=== PATIENT | male | born 1960 | race Caucasian/White ===

== ENCOUNTER 2017-10-21 05:03 | Inpatient (IN) | payer OTHER ==
[~2017-10-21] VITALS: Ht 175.3 cm; Wt 52.8 kg
--- OUTSIDE RECORDS SUMMARY | 2017-10-21 05:13 | XMS REPORT | Continuity of Care Document ---
Author Author [facility] Organization [facility] Address Unknown Phone Unavailable Allergies There is no data. Medications There is no data. Problems There is no data. Procedures There is no data. Results There is no data. Encounters ACCT No. Visit Date/Time Discharge Status Pt. Type Provider Facility Loc./Unit Complaint [id number] 02/21/2015 13:13:00 02/21/2015 23:59:59 CLS Outpatient AMY LEBLANC DO [facility] OCC
--- NOTE | 2017-10-21 05:29 | ED Fall/Injury ---
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 PT STATES HE "BOUNCED AROUND ALL OVER" BUT DOES NOT THINK HE HIT HIS HEAD NO LOSS OF CONSCIOUSNESS DENIES NECK OR BACK PAIN NO CHEST PAIN OR SHORTNESS OF BREATH NO PARESTHESIAS OR MOTOR DEFICITS NO OTHER INJURIES NO PRIOR INJURY OR PROBLEMS WITH THIS HIP NO PCP--HAS NOT SEEN IN OVER 15 YEARS Allergies and Home Medications Allergies Coded Allergies: No Known Drug Allergies (Unverified , 10/21/17) Constitutional: no symptoms reported Eyes: No Symptoms Reported Ears, Nose, Mouth, Throat: no symptoms reported Respiratory: no symptoms reported Cardiovascular: no symptoms reported Gastrointestinal: no symptoms reported Genitourinary: no symptoms reported Musculoskeletal: see HPI (LEFT HIP PAIN), back pain (PT STATES "MY BACK ALWAYS HURTS" BUT IS NOT PAINFUL NOW, AND DENIES INJURING HIS BACK WITH THIS FALL), No neck pain Skin: no symptoms reported Psychiatric/Neurological: No Symptoms Reported Past Fbpbgyt-Kevebt-Jhjuas Hx Patient Social History Alcohol Use: Regular Use ("3 OR 4 BEERS" EVERY DAY) Recreational Drug Use: No Smoking Status: Current Everyday Smoker (2 PPD) Type Used: Cigarettes (2 PPD) Recent Foreign Travel: No Contact w/Someone Who Travel: No Immunizations Up To Date Tetanus Booster (TDap): More than 5yrs Surgeries History of Surgeries: Yes (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) Surgeries: Orthopedic Respiratory History of Respiratory Disorde: No Cardiovascular History of Cardiac Disorders: No Neurological History of Neurological Disord: No Genitourinary History of Genitourinary Disor: No Gastrointestinal History of Gastrointestinal Di: No Musculoskeletal History of Musculoskeletal Dis: Yes Musculoskeletal Disorders: Chronic Back Pain Endocrine History of Endocrine Disorders: No HEENT History of HEENT Disorders: No Cancer History of Cancer: No Psychosocial History of Psychiatric Problem: No Integumentary History of Skin or Integumenta: No Blood Transfusions History of Blood Disorders: No Physical Exam Vital Signs Vital Sign - Last 12Hours 10/21/17 05:20 Temp 96.9 Pulse 80 Resp 20 B/P (MAP) 195/87 (123) Pulse Ox 98 O2 Delivery Room Air Capillary Refill : General Appearance: WD/WN, no apparent distress, thin HEENT: PERRL/EOMI, other (NO EXTERNAL EVIDENCE OF TRAUMA TO HEAD) Neck: non-tender, full range of motion, supple, normal inspection Cardiovascular: normal peripheral pulses, regular rate, rhythm, no edema, no JVD, no murmur Respiratory: chest non-tender, normal breath sounds, no respiratory distress, no accessory muscle use Peripheral Pulses: 2+ Dorsalis Pedis (R), 2+ Left Dors-Pedis (L), 2+ Radial Pulses (R), 2+ Radial Pulses (L) Gastrointestinal: normal bowel sounds, non tender, soft, no organomegaly, no pulsatile mass Back: normal inspection, no CVA tenderness, no vertebral tenderness Extremities: no pedal edema, no calf tenderness, normal capillary refill, pelvis stable, other (TENDERNESS TO LEFT HIP--NO EXTERNAL EVIDENCE OF TRAUMA. VERY LIMITED ROM AND UNABLE TO BEAR WEIGHT ON LEFT LEG DUE TO HIP PAIN. MINOR ABRASION TO LEFT ELBOW, BUT NON-TENDER AND FULL ROM. 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 ) [place] Coma Score Best Eye Response: (4) Open Spontaneously Best Verbal Response: (5) Oriented Best Motor Response: (6) Obeys Commands Vinicio Total: 15 Progress/Results/Core Measures Results/Orders My Orders Orders - GISELA,MAURICIO K DO Pelvis With Left Hip 2-3 Views (10/21/17 05:21) Alcohol (10/21/17 05:43) Cbc With Automated Diff (10/21/17 05:43) Comprehensive Metabolic Panel (10/21/17 05:43) Protime With Inr (10/21/17 05:43) Partial Thromboplastin Time (10/21/17 05:43) Ua Culture If Indicated (10/21/17 05:43) Type And Screen (10/21/17 05:43) Chest 1 View, Ap/Pa Only (10/21/17 05:43) Saline Lock/Iv-Start (10/21/17 05:43) Saline Lock/Iv-Start (10/21/17 05:43) D5 1/2 Ns 1000 Ml Iv Solution (Dextrose (10/21/17 05:45) Fentanyl Injection (Sublimaze Injection (10/21/17 05:43) Dipht,Pertuss(Acell),Tet Adult (Boostrix (10/21/17 05:43) Vital Signs/I&O Vital Sign - Last 12Hours 10/21/17 05:20 Temp 96.9 Pulse 80 Resp 20 B/P (MAP) 195/87 (123) Pulse Ox 98 O2 Delivery Room Air Progress Note : Progress Note LAST FOOD INTAKE 0200 LAST ETOH-- AFTERNOON OF 10/20/17 Diagnostic Imaging Comments XRAYS PELVIS AND LEFT HIP--INTERTROCHANTERIC FX CXR--NO ACUTE PROCESS PENDING RADIOLOGIST REVIEWS Reviewed: Reviewed by Me Departure Communication (Admissions) Progress Notes 0545--SPOKE WITH DR. 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 ACCEPTS PT FOR ADMIT Impression Impression: Primary Impression: Closed intertrochanteric fracture of left hip Additional Impressions: S/P FALL FROM LADDER Daily consumption of alcohol Very heavy cigarette smoker (40 or more per day) Rdbndhdhuh-biawvblxt-uqemybl (DPT) vaccination administered at current visit Disposition: ADMITTED INPATIENT Condition: Improved Admissions Decision to Admit Reason: Admit from ER (Trauma) Decision to Admit/Date: Oct 21, 2017 Time/Decision to Admit Time: 05:45 Departure-Patient Inst. Referrals: NO,LOCAL PHYSICIAN (PCP/Family) Primary Care Physician MAURICIO HIGGINS DO Oct 21, 2017 05:28
[2017-10-21] MEDS ORDERED: TETANUS,DIPTH,PERTUSS P/F (BOOSTRIX) 0.5 ML VIAL IM STA (05:43)
[2017-10-21] MEDS ORDERED: fentaNYL INJECTION 100 MCG/2 ML AMP IVP STA (05:43)
[2017-10-21] MEDS ORDERED: D5 1/2 NS 1000 ML IV SOLUTION 1,000 ML IV ONE (05:45)
[2017-10-21 05:56] LABS: BASOPHILS % (AUTO) 0 % (0-10); EOSINOPHILS # (AUTO) 0.2 10^3/uL (0.0-0.3); EOSINOPHILS % (AUTO) 2 % (0-10); HEMATOCRIT 35 % (40-54); HEMOGLOBIN 11.7 G/DL (13.3-17.7); LYMPHOCYTES # (AUTO) 1.3 X 10^3 (1.0-4.0); LYMPHOCYTES % (AUTO) 14 % (12-44); MEAN CORPUSCULAR HEMOGLOBIN 30 PG (25-34); MEAN CORPUSCULAR HGB CONC 34 G/DL (32-36); MEAN CORPUSCULAR VOLUME 89 FL (80-99); MEAN PLATELET VOLUME 9.8 FL (7.4-10.4); MONOCYTES # (AUTO) 1.2 X 10^3 (0.0-1.0); MONOCYTES % (AUTO) 12 % (0-12); NEUTROPHILS % (AUTO) 72 % (42-75); PLATELET COUNT 368 10^3/uL (130-400); RED BLOOD COUNT 3.89 10^6/uL (4.35-5.85); RED CELL DISTRIBUTION WIDTH 13.6 % (10.0-14.5); WHITE BLOOD COUNT 9.8 10^3/uL (4.3-11.0)
--- NOTE | 2017-10-21 05:57 | Diagnostic Imaging Report ---
INDICATION: Left hip pain after fall. COMPARISON: None available. TECHNIQUE: AP pelvis with AP and frog-leg lateral views of the left hip. FINDINGS: There is an acute intertrochanteric fracture of the proximal left femur. There is less than 5 mm of diastasis of the fracture gap. The lesser trochanter is incompletely from the femoral shaft. No anterior posterior displacement of the femoral shaft and no significant foreshortening. Proximal right femur is intact. No diastases of the symphysis pubis or SI joints. IMPRESSION: 1. Acute, mildly displaced intertrochanteric fracture of the proximal left femur. Dictated by: Dictated on workstation # [id number]
[2017-10-21 06:04] LABS: INR 1.1 (0.8-1.4); PROTHROMBIN TIME PATIENT 14.7 SEC (12.2-14.7)
[2017-10-21 06:14] LABS: ALANINE AMINOTRANSFERASE 14 U/L (0-55); ALBUMIN 4.5 GM/DL (3.2-4.5); ALKALINE PHOSPHATASE 53 U/L (40-136); BILIRUBIN,TOTAL 0.2 MG/DL (0.1-1.0); BUN/CREATININE RATIO 17; CALCIUM 9.6 MG/DL (8.5-10.1); CARBON DIOXIDE 25 MMOL/L (21-32); CHLORIDE 104 MMOL/L (98-107); CREATININE SERUM 0.94 MG/DL (0.60-1.30); GFR ESTIMATED > 60; GLUCOSE 87 MG/DL (70-105); POTASSIUM 4.1 MMOL/L (3.6-5.0); SODIUM 141 MMOL/L (135-145); TOTAL PROTEIN 7.5 GM/DL (6.4-8.2)
--- OUTSIDE RECORDS SUMMARY | 2017-10-21 06:15 | XMS REPORT | Continuity of Care Document ---
Author Author [facility] Organization [facility] Address Unknown Phone Unavailable Allergies There is no data. Medications There is no data. Problems There is no data. Procedures There is no data. Results Test Result Range Complete blood count (CBC) with automated white blood cell (WBC) differential - 10/21/17 05:45 Blood leukocytes automated count (number/volume) 9.8 10*3/uL 4.3-11.0 Blood erythrocytes automated count (number/volume) 3.89 10*6/uL 4.35-5.85 Venous blood hemoglobin measurement (mass/volume) 11.7 g/dL 13.3-17.7 Blood hematocrit (volume fraction) 35 % 40-54 Automated erythrocyte mean corpuscular volume 89 [foz_us] 80-99 Automated erythrocyte mean corpuscular hemoglobin (mass per erythrocyte) 30 pg 25-34 Automated erythrocyte mean corpuscular hemoglobin concentration measurement ( mass/volume) 34 g/dL 32-36 Automated erythrocyte distribution width ratio 13.6 % 10.0-14.5 Automated blood platelet count (count/volume) 368 10*3/uL 130-400 Automated blood platelet mean volume measurement 9.8 [foz_us] 7.4-10.4 Automated blood neutrophils/100 leukocytes 72 % 42-75 Automated blood lymphocytes/100 leukocytes 14 % 12-44 Blood monocytes/100 leukocytes 12 % 0-12 Automated blood eosinophils/100 leukocytes 2 % 0-10 Automated blood basophils/100 leukocytes 0 % 0-10 Blood neutrophils automated count (number/volume) 7.0 10*3 1.8-7.8 Blood lymphocytes automated count (number/volume) 1.3 10*3 1.0-4.0 Blood monocytes automated count (number/volume) 1.2 10*3 0.0-1.0 Automated eosinophil count 0.2 10*3/uL 0.0-0.3 Automated blood basophil count (count/volume) 0.0 10*3/uL 0.0-0.1 PT panel in platelet poor plasma by coagulation assay - 10/21/17 05:45 Prothrombin time (PT) in platelet poor plasma by coagulation assay 14.7 s 12.2-14.7 INR in platelet poor plasma or blood by coagulation assay 1.1 0.8-1.4 Activated partial thromboplastin time (aPTT) in platelet poor plasma bycoagulation assay - 10/21/17 05:45 Activated partial thromboplastin time (aPTT) in platelet poor plasma bycoagulation assay 30 s 24-35 Comprehensive metabolic panel - 10/21/17 05:45 Serum or plasma sodium measurement (moles/volume) 141 mmol/L 135-145 Serum or plasma potassium measurement (moles/volume) 4.1 mmol/L 3.6-5.0 Serum or plasma chloride measurement (moles/volume) 104 mmol/L 98-107 Carbon dioxide 25 mmol/L 21-32 Serum or plasma anion gap determination (moles/volume) 12 mmol/L 5-14 Serum or plasma urea nitrogen measurement (mass/volume) 16 mg/dL 7-18 Serum or plasma creatinine measurement (mass/volume) 0.94 mg/dL 0.60-1.30 Serum or plasma urea nitrogen/creatinine mass ratio 17 NRG Serum or plasma creatinine measurement with calculation of estimated glomerular filtration rate > NRG Serum or plasma glucose measurement (mass/volume) 87 mg/dL 70-105 Serum or plasma calcium measurement (mass/volume) 9.6 mg/dL 8.5-10.1 Serum or plasma total bilirubin measurement (mass/volume) 0.2 mg/dL 0.1-1.0 Serum or plasma alkaline phosphatase measurement (enzymatic activity/volume) 53 U/L 40-136 Serum or plasma aspartate aminotransferase measurement (enzymatic activity/ volume) 23 U/L 5-34 Serum or plasma alanine aminotransferase measurement (enzymatic activity/volume ) 14 U/L 0-55 Serum or plasma protein measurement (mass/volume) 7.5 g/dL 6.4-8.2 Serum or plasma albumin measurement (mass/volume) 4.5 g/dL 3.2-4.5 Encounters ACCT No. Visit Date/Time Discharge Status Pt. Type Provider Facility Loc./Unit Complaint [id number] 02/21/2015 13:13:00 02/21/2015 23:59:59 [facility] Outpatient COLAMY HATCH DO [facility] [id number] 10/21/2017 06:01:00 Document Registration
--- NOTE | 2017-10-21 06:33 | Diagnostic Imaging Report ---
INDICATION: Trauma. COMPARISON: None available. FINDINGS: Hyperaerated lung volume. Architectural distortion in the lung apices may relate to emphysema. No focal airspace consolidation. No pleural effusion or pneumothorax. Heart is normal in size. Normal pulmonary vasculature. There are old healed fractures of the posterior right 7, 8 and 9th ribs. Old nonunited fracture of the mid to distal left clavicle. IMPRESSION: 1. No acute cardiopulmonary process by portable radiography. 2. Hyperaerated lung volumes suggest COPD with possible underlying emphysema. Dictated by: Dictated on workstation # [id number]
[2017-10-21 06:37] LABS: BILIRUBIN,URINE NEGATIVE (NEGATIVE); COLOR,URINE YELLOW; GLUCOSE, URINE (UA) NEGATIVE (NEGATIVE); KETONES,URINE NEGATIVE (NEGATIVE); LEUKOCYTE ESTERASE ,URINE 1+ (NEGATIVE); NITRITE,URINE NEGATIVE (NEGATIVE); PH,URINE 6 (5-9); PROTEIN,URINE 1+ (NEGATIVE); UROBILINOGEN,URINE NORMAL (NORMAL)
[2017-10-21 06:44] LABS: BACTERIA,URINE NEGATIVE /HPF; CLARITY,URINE SLIGHTLY CLOUDY; RBC,URINE RARE /HPF; SQUAMOUS EPITHELIAL CELL,UR RARE /HPF; WBC,URINE RARE /HPF
[2017-10-21 06:50] VITALS: BP 214/98
[2017-10-21 06:55] VITALS: BP 193/90
[2017-10-21 07:41] VITALS: BP 185/79
[2017-10-21] MEDS ORDERED: D5 1/2 NS 1000 ML IV SOLUTION 1,000 ML IV SCH (09:00)
[2017-10-21] MEDS: fentaNYL INJECTION 100 MCG/2 ML AMP IV PRN ×3 (09:21→20:11)
[2017-10-21] MEDS ORDERED: NAPR220T66 PO (09:50)
--- NOTE | 2017-10-21 11:36 | Consultation-Hospitalist ---
HPI History of Present Illness: HPI/Chief Complaint Pt is a 57yoCM with no known medicla history who presented to the ER after a fall from a ladder falling roughly 4ft. He denies any history of falls or dizziness or syncope with this fall. He presented to the ER due to pain and inability to walk and was found to have a left intertrochanteric hip fracture. Ortho has admitted for operative repair and I am consulted for assistance with hypertension. He denies a history of high blood pressure, chest pain, SOB, ESPINOZA. He does not follow with any regular doctors though. Source: patient Date Seen 10/21/17 Attending Physician Naveen Hunter DO PCP No,Local Physician Referring Physician Dr Hunter Date of Admission Oct 21, 2017 at 05:45 Home Medications & Allergies Home Medications Reviewed patient Home Medication Reconciliation Form Allergies Allergies Coded Allergies No Known Drug Allergies (Unverified10/21/17) Past Itmebpp-Irrknz-Bvyzml Hx Patient Social History Employed/Student: employed Alcohol Use: Regular Use (5-6/day) Alcohol Beverage of Choice: Beer Recreational Drug Use: No Smoking Status: Current Everyday Smoker Cigaretts per day: 40 Type Used: Cigarettes Physical Abuse Screen: No Sexual Abuse: No Recent Foreign Travel: No Contact w/other who traveled: No Recent Hopitalizations: No Recent Infectious Disease Expo: No Immunizations Up To Date Tetanus Booster (TDap): More than 5yrs Seasonal Allergies Seasonal Allergies: No Surgeries Yes (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) Orthopedic Respiratory No (NOT DIAGNOSED) Currently Using CPAP: No Currently Using BIPAP: No Cardiovascular No Neurological No Genitourinary No Gastrointestinal No Musculoskeletal Yes Chronic Back Pain Endocrine History of Endocrine Disorders: No HEENT History of HEENT Disorders: No Cancer No Psychosocial History of Psychiatric Problem: No Integumentary History of Skin or Integumenta: No Blood Transfusions History of Blood Disorders: No Family Medical History Significant Family History: No Pertinent Family Hx, Heart Disease Review of Systems Constitutional: No chills, No fever EENTM: No blurred vision, No double vision, No nose congestion, No throat pain Respiratory: No cough, No dyspnea on exertion, No short of breath Cardiovascular: No chest pain, No edema, No palpitations Gastrointestinal: No abdominal pain, No constipation, No diarrhea, No nausea, No vomiting Genitourinary: No dysuria, No frequency Musculoskeletal: joint pain, No muscle pain Skin: No lesions, No rash Psychiatric/Neurological: Denies Headache, Denies Numbness, Denies Tingling Physical Exam Physical Exam Vital Signs Vital Sign - Last 12Hours 10/21/17 05:20 Temp 96.9 Pulse 80 Resp 20 B/P (MAP) 195/87 (123) Pulse Ox 98 O2 Delivery Room Air Capillary Refill : Less Than 3 Seconds General Appearance: No Apparent Distress, WD/WN HEENT: PERRL/EOMI, Moist Mucous Membranes Neck: Non Tender, Supple Respiratory: Lungs Clear, No Respiratory Distress Cardiovascular: Regular Rate, Rhythm, No Murmur Gastrointestinal: Normal Bowel Sounds, Non Tender, Soft Extremity: Normal Capillary Refill, No Calf Tenderness Neurologic/Psychiatric: Alert, Oriented x3 Skin: Normal Color, Warm/Dry Results Results/Procedures Lab Laboratory Tests 10/21/17 05:45 Radiology PELVIS WITH LEFT HIP 2-3 VIEWS INDICATION: Left hip pain after fall. COMPARISON: None available. TECHNIQUE: AP pelvis with AP and frog-leg lateral views of the left hip. FINDINGS: There is an acute intertrochanteric fracture of the proximal left femur. There is less than 5 mm of diastasis of the fracture gap. The lesser trochanter is incompletely from the femoral shaft. No anterior posterior displacement of the femoral shaft and no significant foreshortening. Proximal right femur is intact. No diastases of the symphysis pubis or SI joints. IMPRESSION: 1. Acute, mildly displaced intertrochanteric fracture of the proximal left femur. Assessment/Plan Admission Diagnosis Left intertrochanteric hip fracture Diagnosis/Problems Diagnosis/Problems (1) Closed intertrochanteric fracture of left hip Status: Acute Assessment & Plan: S/p fall at work Ortho primary, plan for OR today Qualifiers: Qualified Codes: S72.142A - Displaced intertrochanteric fracture of left femur, initial encounter for closed fracture (2) Essential (primary) hypertension Assessment & Plan: No known diagnosis but does not follow with any doctors Will start on IV vasotec now Will likely need antihypertensives at discharge (3) Daily consumption of alcohol Status: Acute Assessment & Plan: [facility] Assess Reports having gone 2 days without drinking before and has had no symptoms of withdrawal (4) Very heavy cigarette smoker (40 or more per day) Status: Acute Assessment & Plan: Recommended smoking cessation Patient reports not interested in quitting Clinical Quality Measures DVT/VTE Risk/Contraindication: Risk Factor Score Per Nursin RFS Level Per Nursing on Admit: 4+=Very High Smoking Cessation Counseling: Counseling-Asymptomatic: 3-10 minutes SANGEETA SANCHEZ MD Oct 21, 2017 11:36
[2017-10-21] MEDS ORDERED: 1/2 NS IV SOLUTION 1,000 ML IV PRN (11:38)
[2017-10-21] MEDS ORDERED: ONDANSETRON 4 MG (ZOFRAN) ORAL DISSOLVE TAB SL PRN (11:45)
[2017-10-21] MEDS ORDERED: INFLUENZA TRIvalent 2017-2018 0.5 ML/45 MCG SYR IM ONE (11:45)
[2017-10-21] MEDS ORDERED: LORazepam INJ 2 MG/ML (ATIVAN) VIAL IM/IV PRN (11:45)
[2017-10-21] MEDS ORDERED: ENALAPRILAT 2.5 MG/2 ML (VASOTEC) VIAL IV PRN (11:45)
[2017-10-21] MEDS ORDERED: D5 1/2 NS 1000 ML IV SOLUTION 1,000 ML IV PRN (11:45)
[2017-10-21] MEDS ORDERED: LORazepam 1 MG (ATIVAN) TAB PO PRN (11:45)
[2017-10-21] MEDS ORDERED: ONDANSETRON 4 MG/2 ML (SDV) Z0FRAN IV PRN ×2 (11:45→16:15)
[2017-10-21] MEDS ORDERED: ANTACID SUSP 30 ML UDC (MYLANTA) PO PRN (11:45)
[2017-10-21] MEDS ORDERED: LORazepam INJ 2 MG/ML (ATIVAN) VIAL IV PRN (11:45)
[2017-10-21] MEDS ORDERED: SENNA W/DOCUSATE (SENOKOT S) TABLET PO PRN (11:45)
[2017-10-21 12:00] VITALS: BP 158/79
[2017-10-21] MEDS ORDERED: LACTATED RINGERS 1,000 ML IV PRN (12:21)
[2017-10-21] MEDS ORDERED: proPOfol 200 MG/20 ML (DIPRIVAN) VIAL IV ONE (12:46)
[2017-10-21] MEDS ORDERED: ONDANSETRON 4 MG/2 ML (SDV) Z0FRAN ONE (12:46)
[2017-10-21] MEDS ORDERED: ROCURONIUM 50 MG/5 ML (ZEMURON) VIAL IV ONE (12:46)
[2017-10-21] MEDS ORDERED: LIDOCAINE PF 2% 5 ML (XYLOCAINE) VIAL ONE (12:46)
[2017-10-21] MEDS ORDERED: fentaNYL INJECTION 100 MCG/2 ML AMP ONE (12:47)
[2017-10-21] MEDS ORDERED: MIDAZOLAM 2 MG/2 ML (VERSED) VIAL ONE (12:47)
[2017-10-21] MEDS ORDERED: SEVOFLURANE (ULTANE) 15 ML INHAL SOLN ONE ×5 (12:50→14:28)
[2017-10-21] MEDS ORDERED: ceFAZolin 1,000 MG (ANCEF) VIAL ONE (13:37)
--- NOTE | 2017-10-21 13:39 | History & Physicial ---
History of Present Illness History of Present Illness Reason for visit/HPI Mr. Negro is a 57 y/o male that presents with CC of severe Left hip pain and an inability to ambulate/bear weight on his LLE secondary to sustaining a fall off of a 4 foot ladder early this morning while at work. He subsequently presented to the [facility] ED for evaluation/treatment. Upon presentation plain XRs of his Left femur demonstrated a minimally displaced intertrochanteric fracture of the Left proximal femur. Orthopedics was consulted for definitive management of his injury. Pt. denies head trauma/LOC, denies neck/back pain, denies other injuries to his extremities. He also denies f/c/ns, cp/sob or other constitutional symptoms. He has no other musculoskeletal complaints today. Date of Admission Oct 21, 2017 at 05:45 Date Seen by Provider: Oct 21, 2017 Time Seen by Provider: 13:15 I consulted on this patient on 10/21/17 13:33 Attending Physician Bhavik Villalba DO Admitting Physician No,Local Physician Consult Hospitalist Allergies and Home Medications Allergies Coded Allergies: No Known Drug Allergies (Unverified , 10/21/17) Home Medications Naproxen Sodium 220 Mg Tablet, 220 MG PO BID PRN for PAIN-MILD, (Reported) Past Awmkkit-Apypcz-Sqopcq Hx Patient Social History Employed/Student: employed Alcohol Use: Regular Use Alcohol Beverage of Choice: Beer Recreational Drug Use: No Smoking Status: Current Everyday Smoker Type Used: Cigarettes Physical Abuse Screen: No Sexual Abuse: No Recent Foreign Travel: No Contact w/other who traveled: No Recent Hopitalizations: No Recent Infectious Disease Expo: No Immunizations Up To Date Tetanus Booster (TDap): More than 5yrs Seasonal Allergies Seasonal Allergies: No Surgeries Yes (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) Orthopedic Respiratory No (NOT DIAGNOSED) Currently Using CPAP: No Currently Using BIPAP: No Cardiovascular No Neurological No Genitourinary No Gastrointestinal No Musculoskeletal Yes Chronic Back Pain Endocrine History of Endocrine Disorders: No HEENT History of HEENT Disorders: No Cancer No Psychosocial History of Psychiatric Problem: No Integumentary History of Skin or Integumenta: No Blood Transfusions History of Blood Disorders: No Constitutional: no symptoms reported EENTM: no symptoms reported Respiratory: no symptoms reported Gastrointestinal: no symptoms reported Genitourinary: no symptoms reported Musculoskeletal: other (Left hip pain) Skin: no symptoms reported Psychiatric/Neurological: No Symptoms Reported Physical Exam Vital Signs Vital Sign - Last 12Hours 10/21/17 05:20 Temp 96.9 Pulse 80 Resp 20 B/P (MAP) 195/87 (123) Pulse Ox 98 O2 Delivery Room Air Capillary Refill : Less Than 3 Seconds General Appearance: No Apparent Distress, WD/WN Eyes: Bilateral Eye Normal Inspection, Bilateral Eye PERRL, Bilateral Eye EOMI HEENT: PERRL/EOMI Neck: Full Range of Motion, Normal Inspection, Non Tender, Supple Respiratory: No Accessory Muscle Use, No Respiratory Distress Cardiovascular: Regular Rate, Rhythm, Normal Peripheral Pulses Gastrointestinal: Non Tender, Soft Back: Normal Inspection Extremity: Other (LLE: pain with PROM/log roll, motor/sensation grossly intact , all compartments soft/compressible, foot well perfused, skin intact, no open wounds.) Neurologic/Psychiatric: Alert, Oriented x3, No Motor/Sensory Deficits, Normal Mood/Affect, carbon paper interleafer II-XII Norm as Tested Skin: Warm/Dry Assessment/Plan Assessment and Plan Problems: (1) Closed intertrochanteric fracture of left hip Status: Acute Qualifiers: Qualified Codes: S72.142A - Displaced intertrochanteric fracture of left femur, initial encounter for closed fracture Assessment & Plan: S/p fall at work off of a 4 foot ladder onto his left hip Sustained a minimally displaced intertrochanteric fracture Left proximal femur Continue NPO Unstable injury that will require operative fixation. Will plan for OR today. Will get hospitalist consult for medical management I have discussed the injury and treatment options with the patient in detail including the risks, benefits, potential complications and expected outcomes. All of his questions have been answered to his satisfaction. He has given informed written consent to proceed as planned. (2) Essential (primary) hypertension Assessment & Plan: No known diagnosis but does not follow with any doctors Will start on IV vasotec now Will likely need antihypertensives at discharge (3) Daily consumption of alcohol Status: Acute Assessment & Plan: [facility] Assess Reports having gone 2 days without drinking before and has had no symptoms of withrdrawal (4) Very heavy cigarette smoker (40 or more per day) Status: Acute Assessment & Plan: Recommended smoking cessation Patient reports not interested in quitting Admission Diagnosis Intertrochanteric fracture Left proximal femur. Clinical Quality Measures DVT/VTE Risk/Contraindication: Risk Factor Score Per Nursin RFS Level Per Nursing on Admit: 4+=Very High Smoking Cessation Counseling: Counseling-Asymptomatic: 3-10 minutes BHAVIK VILLALBA DO Oct 21, 2017 13:39
[2017-10-21] MEDS ORDERED: NEOSTIGMINE (BLOXIVERZ ) 1 MG/1ML 10 ML VIAL ONE (14:38)
[2017-10-21] MEDS ORDERED: GLYCOPYRROLATE 0.2 MG/ML (ROBINUL) 2 ML VIAL ONE (14:38)
[2017-10-21] MEDS ORDERED: morphine INJ 10 MG/ML 1ML (SYR OR VIAL) ONE (14:41)
[2017-10-21] MEDS ORDERED: HYDROmorphone (DILAUDID) 2 MG/ML VIAL ONE (14:41)
--- NOTE | 2017-10-21 14:56 | Progress Note-Post Operative ---
Post-Operative Progess Note Surgeon (s)/[facility] Continuous Process (s) Surgeon BHAVIK VILLALBA DO [facility] Continuous [facility] Baldomero Kirkpatrick PA-C Pre-Operative Diagnosis Minimally diplaced intertrochanteric fracture Left proximal femur Post-Operative Diagnosis same Post-Op Procedure Note Date of Procedure: Oct 21, 2017 Name of Procedure Performed: Closed reduction/placement of cephalomedullary nail Left femur Description & Findings Description and Findings: Minimally displaced 2-part intertrochanteric fracture Left proximal femur. Anesthesia Type GETA Estimated Blood Loss < 50 mL Packing none. Specimen(s) collected/removed None BHAVIK VILLALBA DO Oct 21, 2017 14:56
--- NOTE | 2017-10-21 15:22 | Anesthesia-Peripheral Nerve Bl ---
Procedure Start/Stop Time Date of Procedure: Oct 21, 2017 Start Time: 14:55 Referring Physician: Dale Stop Time: 15:10 Peripheral Nerve Block Peripheral Nerve Blockade Risk/Benefits/Alternatives discussed, including IV injection leading to complications or seizures, nerve irritation or damage, pneumothorax, total spinal anesthesia, injection, and/or bleeding. Side Confirmed: RIGHT Indication: Analgesia Specifically requested for management of pain by: Dx/Pain Location Right IM Nail Patient Condition Vital Signs Vital Signs Date Time Temp Pulse Resp B/P (MAP) Pulse Ox O2 Delivery O2 Flow Rate FiO2 10/21/17 12:00 97.2 75 20 158/79 (105) 98 Room Air Patient Condition: General PNB performed under: General Anesthesia Indication Post operative Pain control Procedure Prepartation: Iodophor/Isopropyl Position: Supine Rices Landing: Short-bevel Needle (s) Size: 22g 2" Technique: Injection through needle Injectate: ropivacaine Concentration %: 0.5 Volume (ml): 30 Epinephrine used: No Narrative Injection was made incrementally with constant monitoring. Aspiration every (mls): 5 Blood Aspirated: No Events Events: None:easy well tolerated Sucess: Complete (Completed under General Anesthesia with Direct visualizaiton with Ultrasound. Good hydrodisection visualized. ) Patient Conditon Post Peripheral Nerve Block Post Peripheral Nerve Block Vital Signs: Blood Pressure: Systolic Diastolic Heart Rate Blood Pressure Systolic: 158 Blood Pressure Diastolic: 79 Pulse Rate (adult): 75 MEGHAN THORPE CRNA Oct 21, 2017 15:22
[2017-10-21] MEDS ORDERED: ONDANSETRON 4 MG/2 ML (SDV) Z0FRAN IVP PRN (15:30)
[2017-10-21] MEDS ORDERED: morphine INJ 10 MG/ML 1ML (SYR OR VIAL) IVP PRN (15:30)
--- NOTE | 2017-10-21 16:03 | Diagnostic Imaging Report ---
EXAMINATION: Fluoroscopy. INDICATION: Left hip pain. 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 94.7 seconds of fluoroscopy time was visualized. AP and lateral spot films of the left hip were received from the OR. There is an intramedullary sagar and an orthopedic fixation screw securing the intertrochanteric fracture of the left femur seen on the exam performed earlier today. The orthopedic hardware appears to be in good position and the main fracture fragments are near anatomic in alignment. IMPRESSION: Stable postoperative left hip. Dictated by: Dictated on workstation # [id number]
[2017-10-21 16:13] VITALS: BP 189/74
[2017-10-21] MEDS: NS IV 1000 ML 1,000 ML IV SCH (16:48)
[2017-10-21] MEDS: oxyCODONE/APAP 5/325MG (PERCOCET 5) TABLET PO PRN (16:49)
[2017-10-21 20:00] VITALS: BP 106/63
[2017-10-21] MEDS: ceFAZolin INJECTION 1 MG in NS (IVPB) 50 ML IV SCH (20:10)
[2017-10-22] VITALS: BP 109/56
[2017-10-22] MEDS: NS IV 1000 ML 1,000 ML IV SCH ×4 (02:30→23:03)
--- NOTE | 2017-10-22 03:04 | OPERATIVE REPORT ---
DATE OF SERVICE: 10/21/2017 PREOPERATIVE DIAGNOSIS: Minimally displaced intratrochanteric fracture left proximal femur. POSTOPERATIVE DIAGNOSIS: Minimally displaced intratrochanteric fracture left proximal femur. PROCEDURE: Closed reduction followed by placement of a cephalomedullary nail, left femur. ATTENDING SURGEON: Dr. Bhavik Villalba. PRESIDENTIAL SUPPORT SPECIALIST: Baldomero Kirkpatrick PA-C; Mr. Kirkpatrick's assistance was needed in order to hold the necessary and critical retractors and to increase the efficiency and efficacy of the case, the case would not have been possible without the assistance of Mr. Kirkpatrick. ANESTHESIA: General endotracheal. ESTIMATED BLOOD LOSS: Less than 50 mL. COMPLICATIONS: None. SPECIMENS: None. DRAINS: None. BRIEF HISTORY AND INDICATIONS: The patient is a 57-year-old male that sustained a mechanical fall off of an approximately 4 feet ladder early this morning while at work landing onto his left hip. The patient subsequently had severe left hip pain and inability to bear weight or ambulate on his left lower extremity. As such, he was transferred to the [facility] Emergency Department for evaluation and treatment. Upon presentation, plain radiographs of the patient's left femur demonstrated a minimally displaced intertrochanteric fracture of the left proximal femur. The orthopedic surgery was consulted for definitive management of his injury. I discussed the nature of the injury with the patient in detail as well as the need for operative fixation secondary to it being an unstable injury of the left proximal femur. We did discuss the treatment options in detail, which included the risks, benefits, potential complications and expected outcomes of both nonoperative and operative management. Risks that were discussed included bleeding, infection, damage to surrounding neurovascular structures, malunion, nonunion, mechanical failure of the implant and potential need for secondary surgical procedures. After all of his questions were answered to his satisfaction, the patient gave informed written consent to proceed. Preoperatively, the patient's left lower extremity was otherwise stable, all of his compartments were soft and compressible, motor and sensory function was grossly intact, his skin was intact. There were no open wounds and his left foot was well perfused. PROCEDURE NOTE: After correctly identifying the patient as Mr. Merlin Negro in the preoperative holding area and after his left hip was appropriately marked, he was transferred to the operating room. Once in the operating room, he had successful induction of general endotracheal anesthesia. The knee was transferred to a radiolucent fracture table and placed in the supine position. All bony prominences were meticulously padded. He was safely secured to the fracture table and lower extremities were placed in the scissor position. I applied manual traction to the left lower extremity and completed a closed reduction maneuver. Preoperative C-arm fluoroscopy in both the AP and lateral planes confirmed acceptable closed reduction of the fracture. The left lower extremity was then prepped and draped in the routine sterile fashion. Prior to beginning the case, we completed an operating room timeout with all parties involved in the case in agreement and verified appropriate infusion of prophylactic antibiotics. Using a 10-blade scalpel, I made an incision of approximately 3 cm in length, 2 cm proximal to the tip of the greater trochanter incising through the skin and subcutaneous tissue. Blunt Metzenbaum scissors were then used to dissect through the fascia of the gluteus tammy so as to gain access to the tip of the greater trochanter. Then, under fluoroscopic guidance, the guide pin from the [employer] TFN set was then introduced into the proximal femur to the appropriate position in both the AP and lateral planes. Opening reamer was then used over the guide pin to open the test pilot hole for the nail. I then used a series of intramedullary reamers to prepare the shaft of the proximal femur for the cephalomedullary nail. The nail was then introduced over the guidewire into the appropriate position of the proximal femur under fluoroscopic guidance and placed into the appropriate position with light taps of the mallet. Once C-arm fluoroscopy confirmed appropriate position of the nail, the intramedullary guidewire was then removed and then the guide pin for the cephalomedullary lag screw was then introduced into the head and neck of the femur through the external aiming arm. This again was done under fluoroscopic guidance so as to ensure the pin was in the appropriate position in both AP and lateral planes. Once the pin was in the appropriate position, we measured for the length of the lag screw, which gave us 100 mm on the measuring device; therefore, I decided to go with a 95 mm lag screw. We then used the lateral cortical reamer and then the step reamer to prepare the path of the lag screw. I then tapped over the guide pin and then introduced the 95 mm cephalomedullary lag screw over the guide pin into the appropriate position of the femoral head and neck under fluoroscopic guidance so as to give us the adequate tipped apex distance. Once this was completed, I then compressed the fracture through the external aiming arm compression device and then locked the nail distally with a single lateral to medial locking bolt through the external aiming arm. Final C-arm imaging in both AP and lateral planes confirmed acceptable alignment and reduction of the fracture as well as appropriate position of all the hardware. The wounds were then irrigated with copious amounts of sterile saline followed by standard closure, which involved 0 Vicryl for the deep fascia, 2-0 Vicryl for the subcutaneous tissue and Monocryl and Steri-Strips for the skin. The patient then had a sterile dressing applied and then was awakened and extubated from the operating room without complications. He was then transferred to the PACU in stable condition. He tolerated the procedure well without complications and all counts were correct at the end of the case. Job ID: [id number] DocumentID: [id number] Dictated Date: 10/21/2017 15:05:05 Still Runner Date: 10/22/2017 03:04:35 Dictated By: BHAVIK VILLALBA
[2017-10-22 04:00] VITALS: BP 124/55
[2017-10-22] MEDS: THIAMINE 100 MG (VITAMIN B-1) TAB PO SCH (05:48)
[2017-10-22] MEDS: ceFAZolin INJECTION 1 MG in NS (IVPB) 50 ML IV SCH (05:48)
[2017-10-22] MEDS: oxyCODONE/APAP 5/325MG (PERCOCET 5) TABLET PO PRN ×4 (05:49→20:03)
[2017-10-22 07:10] LABS: HEMOGLOBIN 8.9 G/DL (13.3-17.7); MEAN PLATELET VOLUME 10.1 FL (7.4-10.4); RED CELL DISTRIBUTION WIDTH 13.7 % (10.0-14.5); WHITE BLOOD COUNT 10.8 10^3/uL (4.3-11.0)
[2017-10-22 07:36] VITALS: BP 145/67
[2017-10-22] MEDS: ENOXAPARIN 40 MG/0.4 ML (LOVENOX) SYR SC SCH (09:16)
[2017-10-22] MEDS: fentaNYL INJECTION 100 MCG/2 ML AMP IV PRN (09:17)
--- NOTE | 2017-10-22 11:08 | Progress Note-Hospitalist ---
Subjective HPI/CC On Admission Date Seen by Provider: Oct 22, 2017 Time Seen by Provider: 11:02 Pt is a 57yoCM with no known medicla history who presented to the ER after a fall from a ladder falling roughly 4ft. He denies any history of falls or dizziness or syncope with this fall. He presented to the ER due to pain and inability to walk and was found to have a left intertrochanteric hip fracture. Ortho has admitted for operative repair and I am consulted for assistance with hypertension. He denies a history of high blood pressure, chest pain, SOB, ESP[place]ZA. He does not follow with any regular doctors though. Subjective/Events-last exam Pt reports feeling well. Was up ambulating and doing exercises. Somewhat sore now. Objective Exam Vital Signs Vital Sign - Last 12Hours 10/21/17 05:20 Temp 96.9 Pulse 80 Resp 20 B/P (MAP) 195/87 (123) Pulse Ox 98 O2 Delivery Room Air Capillary Refill : Less Than 3 SecondsLess Than 3 Seconds General Appearance: No Apparent Distress, WD/WN Respiratory: Lungs Clear, No Respiratory Distress Cardiovascular: Regular Rate, Rhythm, No Murmur Gastrointestinal: Normal Bowel Sounds, Non Tender, Soft Neurologic/Psychiatric: Alert, Oriented x3 Results/Procedures Lab Laboratory Tests 10/22/17 06:10 Assessment/Plan Assessment and Plan Assess & Plan/Chief Complaint left hip fracture Diagnosis/Problems Diagnosis/Problems (1) Closed intertrochanteric fracture of left hip Status: Acute Assessment & Plan: S/p fall at work Ortho primary POD #1 Qualifiers: Qualified Codes: S72.142A - Displaced intertrochanteric fracture of left femur, initial encounter for closed fracture (2) Essential (primary) hypertension Assessment & Plan: No known diagnosis but does not follow with any doctors Continue IV vasotec for now Start lisinopril in AM (3) Anemia Assessment & Plan: Anemia secondary to acute blood loss Will likely need Infed prior to discharge Qualifiers: Qualified Codes: D64.89 - Other specified anemias (4) Daily consumption of alcohol Status: Acute Assessment & Plan: CIWA Assess Reports having gone 2 days without drinking before and has had no symptoms of withdrawal (5) Very heavy cigarette smoker (40 or more per day) Status: Acute Assessment & Plan: Recommended smoking cessation Patient reports not interested in quitting SANGEETA SANCHEZ MD Oct 22, 2017 11:07 am
--- NOTE | 2017-10-22 11:33 | Physical Therapy Evaluation ---
PT Evaluation-General Medical Diagnosis Admission Date Oct 21, 2017 at 05:45 Medical Diagnosis: left hip fracture Onset Date: Oct 21, 2017 Therapy Diagnosis Therapy Diagnosis: impaired mobility, endurance Height/Weight Height (Feet): 5 Height (Inches): 9.00 Weight (Pounds): 116 Weight (Ounces): 4.8 Precautions Precautions/Isolations: Fall Prevention Weight Bear Status Right Lower Extremity: Right Full Weight Bearing Left Lower Extremity: Left Weight Bearing/Tolerated Referral Physician: Dale Reason for Referral: Evaluation/Treatment Medical History Pertinent Medical History: Smoking Additional Medical History chronic back pain, 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 Social History Home: Single Level Current Living Status: Alone Entry Into Home: Stairs Without Railing PT Steps Into Home: 3 Prior/Core FIM Prior Level of Function Functional [place] Measure 0=Not Assessed/NA 4=Minimal Assistance 1=Total Assistance 5=Supervision or Setup 2=Maximal Assistance 6=Modified [place] 3=Moderate Assistance 7=Complete [place] Bed Mobility: 7 Transfers (B,C,W/C) (FIM): 7 Gait: 7 PT Evaluation-Current Subjective Patient in bed pre tx, agrees to PT, has pain of 4/10 left hip. Pt/Family Goals "to go home" Objective Patient Orientation: Person, Place, Situation ROM/Strength ROM Lower Extremities NT left side, right WNL Strength Lower Extremities NT Neuromuscular (Tone, Coordination, Reflexes) NT Sensory Vision: Functional Hearing: Functional Sensation Right Lower Extremit: Intact Sensation Left Lower Extremity: Intact Sensation Lower Extremities Patient has no complaints of numbness or tingling. Transfers Functional [place] Measure 0=Not Assessed/NA 4=Minimal Assistance 1=Total Assistance 5=Supervision or Setup 2=Maximal Assistance 6=Modified [place] 3=Moderate Assistance 7=Complete [place] Transfers (B, C, W/C) (FIM): 5 Scootin Rollin Supine to/from Sit: 5 Sit to/from Stand: 5 Patient is able to perform bed mobility and transfers with SBA. He does need occasional cues for safety but he is extremely impulsive, moves quickly and without thought about safety. Gait Anticipated Mode of Locomotion: Walk Gait (FIM): 1 Distance: 30' Gait Level of Assist: 5 Gait Persons Needed: 1 Gait Assistive Device: FWW Comments/Gait Description Good ambulation and step through, still very quick and moves without thought of safety. Balance Sitting Static: Normal Sitting Dynamic: Normal Standing Static: Good Standing Dynamic: Good Treatment seated exercises x 10 (hip abd, heel slides, LAQ, heel lifts, hip flexion) Assessment/Needs Patient has impaired mobility, endurance post left hip fracture. He is doing well mobility [place] for this point in his recovery but he has extremely poor safety awareness and judgement. Rehab Potential: Fair PT Short Term Goals Short Term Goals Time Frame: Oct 29, 2017 Transfers (B,C,W/C) (FIM): 6 Gait (FIM): 6 Gait Distance Comment: 150' Gait Level of Assist: 6 Gait Assistive Device: FWW PT Plan Problem List Problem List: Activity Tolerance, Functional Strength, Safety, Balance, Gait, Transfer, Bed Mobility, ROM Treatment/Plan Treatment Plan: Continue Plan of Care Treatment Plan: Bed Mobility, Education, Functional Activity Manuel, Functional Strength, Gait, Safety, Therapeutic Exercise, Transfers Treatment Duration: Oct 29, 2017 Frequency: 11 times per week Estimated Hrs Per Day: .25 hour per day (15-30') Patient and/or Family Agrees t: Yes Safety Risks/Education Patient Education: Gait Training, Transfer Techniques, Reviewed Precautions, Correct Positioning, Disease Process, Safety Issues Teaching Recipient: Patient Teaching Methods: Demonstration, Discussion Response to Teaching: Reinforcement Needed Discharge Recommendations Plan Patient will perform bed mobility and transfer training, balance and endurance training, functional strengthening, stair training, gait training, and education , to improve functional mobility and independence at home. Therapy D/C Recommendations: Home w/ Family Support Time/GCodes Time In: 1110 Time Out: 1135 Total Billed Treatment Time: 25 Total Billed Treatment 1 visit EVL 15' EX 10' ILIR ANAND PT Oct 22, 2017 11:33
--- NOTE | 2017-10-22 12:32 | Anesthesia-General Post-Op ---
General Patient Condition Mental Status/LOC: Same as Preop Cardiovascular: Satisfactory Nausea/Vomiting: Absent Respiratory: Satisfactory Pain: Controlled Complications: Absent Post Op Complications Complications None Follow Up Care/Instructions Patient Instructions None needed. Anesthesia/Patient Condition Patient Condition Patient is doing well, no complaints, stable vital signs, no apparent adverse anesthesia problems. No complications reported per nursing. [place] [facility]: No RANDEE HOBBS CRNA Oct 22, 2017 12:32
--- NOTE | 2017-10-22 14:09 | Occupational Therapy Eval ---
OT Evaluation-General/PLF Medical Diagnosis Admission Date Oct 21, 2017 at 05:45 Medical Diagnosis: left hip fracture Onset Date: Oct 21, 2017 Therapy Diagnosis Therapy Diagnosis: decr self care, decr functional mobility Height/Weight Height (Feet): 5 Height (Inches): 9.00 Weight (Pounds): 116 Weight (Ounces): 4.8 Precautions Precautions/Isolations: Fall Prevention Safety Interventions: None Weight Bear Status Weight Bearing Restriction: Weight Bearing/Tolerated Location Restriction: L LE Referral Physician: Dale Referral Reason: Evaluation/Treatment Medical History Pertinent Medical History: HTN, Smoking (2 ppd) Additional Medical History Partial amputation Left little finger. Chronic back pain. Daily alcohol Current History Pt fell off ladder at work, landing on L hip. Had nailing 10-21-17, with [employer] Social History Home: Single Level Current Living Status: Alone Entry Into Home: Stairs Without Railing Steps Into Home: 3 ADL-Prior Level of Function ADL PLOF Comments Pt reported that he has been able to manage all of his basic ADLs and IADLs without help. 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 OT Current Status Subjective Pt seen inroom, up in recliner, agreeable to OT. Pt stated that he has pain all the time and is used to it so he just rates it 5/10. Appearance Alert, cooperative, impulsive Mental Status/Objective Patient Orientation: Person, Place, Time, Situation Current Glasses/Contacts: Yes Hand Dominance: Right Upper Extremity ROM Grossly WLF bilat Upper Extremity Sensation Pt reported no problems Upper Extremity Strength 5/5 bilat ADL-Treatment ADL-Current Pt said that he has been getting himself up and took himself to the bathroom this afternoon. He moved quickly and impulsively and walked SBA, FWW to bathroom. He pushed walker aside and needed skilled cues to use it to help with transfers. He sat down a little unsteadily onto toilet with SBA and did not use grab bar that was available. He would benefit from BSC for home to make toilet taller and to provide arms for help with safe transfers. Pt education on modified techniques for dressing but he declined to put on regular clothes. He has a tub/shower combo at home and was not concerned about stepping in and out of tub and did not think that he needed a shower chair. He was agreeable to use of FWW and was also interested in trying crutches (info shared with PT) Functional [place] Measure 0=Not Assessed/NA 4=Minimal Assistance 1=Total Assistance 5=Supervision or Setup 2=Maximal Assistance 6=Modified [place] 3=Moderate Assistance 7=Complete IndependenceIRFPAI Quality Coding Scale 6 Independent with activity with or without an assistive device 5 Patient requires set up or clean up by helper. Patient completes activity by themselves 4 Supervision or touching assist (CGA). [place] provide cues , steadying assist 3 The helper provides less than half the effort to complete the activity 2 The helper provides more than half the effort to complete the activity 1 Dependent. The helper does all the effort to complete an activity 7 Patient refused to complete or attempt activity 9 The patient did not perform the activity before the current illness or injury 88 Not attempted due to Medical conditions or safety concerns Toilet/Commode Transfer (FIM): 5 Education OT Patient Education: Modified ADL techniques, Purpose of tx/functional activities, Rehab process, Safety issues, Transfer techniques, Use of adapted equipment Teaching Recipient: Patient Teaching Methods: Demonstration, Discussion Response to Teaching: Verbalize Understanding, Return Demonstration, Reinforcement Needed OT Short Term Goals Short Term Goals Transfers (B,C,W/C) (FIM): 6 1=Demonstrate adherence to instructed precautions during ADL tasks. 2=Patient will verbalize/demonstrate understanding of assistive devices/ modifications for ADL. 3=Patient will improve strength/tolerance for activity to enable patient to perform ADL's. OT Senior Living Goals Chief Dispatcher Service Goals Time Frame: Oct 24, 2017 Upper Body Dressing(FIM): 6 Lower Body Dressing(FIM): 6 Toileting(FIM): 6 Toilet/Commode Transfer(FIM): 6 1=Demonstrate adherence to instructed precautions during ADL tasks. 2=Patient will verbalize/demonstrate understanding of assistive devices/ modifications for ADL. 3=Patient will improve strength/tolerance for activity to enable patient to perform ADL's. OT Education/Plan Problem List/Assessment Assessment: Decreased Safety Aware, Impaired Self-Care Skills Pt would benefit from skilled OT to increase his independence in basic self care to allow him to safely return to his home and to to decrease caregiver burden. Discharge Recommendations Plan/Recommendations: Continue POC Therapy D/C Recommendations: Occupational Therapy Home Care (evaluation) Equpiment Recommendations-D/C: Toilet Riser with Rails (or BSC) Barriers to Progress impulsivity Treatment Plan/Plan of Care Treatment,Training & Education: Yes Patient would benefit from OT for education, treatment and training to promote independence in ADL's, mobility, safety and/or upper extremity function for ADL' s. Plan of Care: ADL Retraining Treatment Duration: Oct 24, 2017 Frequency: 3 times per week Estimated Hrs Per Day: .25 hour per day (.25 to .5) Agreement: Yes Rehab Potential: Good Time/GCodes Start Time: 13:38 Stop Time: 13:59 Total Time Billed (hr/min): 21 Billed Treatment Time visit, evaluation low intensity 10 minutes, ADL 11 minutes BRIGITTE WALL OT Oct 22, 2017 14:08
--- NOTE | 2017-10-22 15:00 | Physical Therapy Daily Note ---
PT Daily Note-Current Subjective Agreeable to PT. Reports he did his leg exercises just before this therapist arrived. Asked if he could walk in the halls this evening. This therapist asked him to ask the nurse or nurse tech to walk with him for safety reasons and he agreed to comply. Transfers Functional [place] Measure 0=Not Assessed/NA 4=Minimal Assistance 1=Total Assistance 5=Supervision or Setup 2=Maximal Assistance 6=Modified [place] 3=Moderate Assistance 7=Complete IndependenceIRFPAI Quality Coding Scale 6 Independent with activity with or without an assistive device 5 Patient requires set up or clean up by helper. Patient completes activity by themselves 4 Supervision or touching assist (CGA). [place] provide cues , steadying assist 3 The helper provides less than half the effort to complete the activity 2 The helper provides more than half the effort to complete the activity 1 Dependent. The helper does all the effort to complete an activity 7 Patient refused to complete or attempt activity 9 The patient did not perform the activity before the current illness or injury 88 Not attempted due to Medical conditions or safety concerns Weight Bearing Right Lower Extremity: Right Full Weight Bearing Left Lower Extremity: Left Weight Bearing/Tolerated Treatments Pt sitting EOB upon this therapist arriving. Pt able to stand up with supervision. Pt ambulated x 150 ft with FWW, WBAT with SB-CGA. Pt back to room sitting EOB with call light in reach and all needs met post treatment. Assessment Current Status: Good Progress Progressing well. Did well with gait and transfer sit to stand. Pt pleasant and cooperative. Motivated to get stronger. PT Short Term Goals Short Term Goals Time Frame: Oct 29, 2017 Transfers (B,C,W/C) (FIM): 6 Gait (FIM): 6 Gait Distance Comment: 150' Gait Level of Assist: 6 Gait Assistive Device: FWW PT Plan Problem List Problem List: Activity Tolerance, Functional Strength, Safety, Balance, Gait, Transfer Treatment/Plan Treatment Plan: Continue Plan of Care Treatment Plan: Bed Mobility, Education, Functional Activity Manuel, Functional Strength, Gait, Safety, Therapeutic Exercise, Transfers Treatment Duration: Oct 29, 2017 Frequency: 11 times per week Estimated Hrs Per Day: .25 hour per day (15-30') Patient and/or Family Agrees t: Yes Safety Risks/Education Patient Education: Safety Issues Teaching Recipient: Patient Teaching Methods: Discussion Response to Teaching: Verbalize Understanding (regarding ambulation with supervision) Time/GCodes Time In: 1430 Time Out: 1444 Total Billed Treatment Time: 14 Total Billed Treatment visit GT 14 FRANCISCO MOLINA PT Oct 22, 2017 15:00
[2017-10-22 16:00] VITALS: BP 185/77
--- NOTE | 2017-10-22 18:41 | Progress Note (SOAP) ---
Subjective Date Seen by Provider: Oct 22, 2017 Time Seen by Provider: 18:36 Subjective/Events-last exam Pt NADIA, doing well, pain controlled, mobilized well OOB with PT/OT today, no complaints. Objective Exam Vital Signs Date Time Temp Pulse Resp B/P (MAP) Pulse Ox O2 Delivery O2 Flow Rate FiO2 10/22/17 16:00 97.9 70 20 185/77 (113) 99 Room Air 10/22/17 12:17 97.8 10/22/17 09:00 Room Air 10/22/17 07:36 97.8 75 20 145/67 (93) 95 Room Air 10/22/17 04:00 96.6 64 18 124/55 (78) 98 Room Air 10/22/17 00:00 97.4 71 18 109/56 (73) 98 Room Air 10/21/17 20:10 Room Air 10/21/17 20:00 97.5 69 20 106/63 (77) 97 Room Air I & O 10/22/17 07:00 Intake Total 4350 ml Output Total 1850 ml Balance 2500 ml Capillary Refill : Less Than 3 SecondsLess Than 3 Seconds General Appearance: No Apparent Distress HEENT: Normal ENT Inspection Respiratory: No Respiratory Distress Cardiovascular: Regular Rate, Rhythm, Normal Peripheral Pulses Extremity: Other (LLE: dressings with mild drainage, all compartments soft/NT, motor/sensation grossly intact, foot well perfused.) Results Lab Laboratory Tests 10/22/17 06:10: White Blood Count 10.8, Red Blood Count 3.00L, Hemoglobin 8.9#L, Hematocrit 28L , Mean Corpuscular Volume 92, Mean Corpuscular Hemoglobin 30, Mean Corpuscular Hemoglobin Concent 32, Red Cell Distribution Width 13.7, Platelet Count 325, Mean Platelet Volume 10.1 Microbiology 10/21/17 MRSA Screen - Final, Complete MRSA not isolated Assessment/Plan Assessment/Plan Assess & Plan/Chief Complaint S/P IMN Left femur for intertrochanteric fracture POD #1 Doing well, orthopedically stable Continue PT/OT daily for mobilization OOB, WBAT LLE Lovenox/SCDs for VTE prophylaxis; will d/c on aspirin Current pain control regimen Acute post-op blood loss anemia, Hb at 8.9, pt asymptomatic and will monitor D/C planning: pt lives alone so may need inpt rehab at d/c Anticipate d/c tomorrow. Instructions given Questions answered Clinical Quality Measures DVT/VTE Risk/Contraindication: Risk Factor Score Per Nursin RFS Level Per Nursing on Admit: 4+=Very High Smoking Cessation Counseling: Counseling-Asymptomatic: 3-10 minutes BHAVIK VILLALBA DO Oct 22, 2017 18:41
--- NOTE | 2017-10-22 18:45 | Discharge Inst-Surgical ---
Discharge Inst-Surgical Depart Medication/Instructions New, Converted or Re-Newed RX: RX on Chart Patient Instructions Discontinue lovenox at time of discharge; take 325mg of enteric coated aspirin twice daily for 3 weeks to help prevent blood clots. Consults/Follow Up Goal/Follow Up Appt.: Follow up with Dr. Villalba at [facility], [facility] in 2 weeks; please call the office to confirm your appointment. Activity Activity as Tolerated: Yes You may bear weight as tolerated on your Left leg Walking Assistive Device: Walker Activity Instructions: Avoid Pulling & Pushing, Avoid Stress to Incision Do Not Lift Over _ Pounds: 10 Driving Instructions: No Driving/Refer to Incentive Spirometry: Every 2 Hours While Awake Diet Discharge Diet: No Restrictions Skin/Wound Care Infection Signs and Symptoms: Increased Redness, Foul Odor of Wound, Increased Drainage, Increased Swelling, Temperature Above 101 F Wound Care Comment: You may remove your dressings in 3 days and shower, no baths or soaking tubs; your sutures will be removed in the office at your first follow-up appointment. Bathing Instructions: Shower Operative Area Clean and Dry: Keep Incision Clean/Dry BHAVIK VILLALBA DO Oct 22, 2017 18:45
[2017-10-23] VITALS: BP 133/59
[2017-10-23] MEDS: oxyCODONE/APAP 5/325MG (PERCOCET 5) TABLET PO PRN ×5 (02:14→20:34)
[2017-10-23] MEDS: THIAMINE 100 MG (VITAMIN B-1) TAB PO SCH (06:20)
[2017-10-23 06:46] LABS: BASOPHILS % (AUTO) 0 % (0-10); EOSINOPHILS # (AUTO) 0.1 10^3/uL (0.0-0.3); EOSINOPHILS % (AUTO) 2 % (0-10); HEMATOCRIT 29 % (40-54); HEMOGLOBIN 9.4 G/DL (13.3-17.7); LYMPHOCYTES # (AUTO) 1.7 X 10^3 (1.0-4.0); LYMPHOCYTES % (AUTO) 19 % (12-44); MEAN CORPUSCULAR HEMOGLOBIN 30 PG (25-34); MEAN CORPUSCULAR HGB CONC 32 G/DL (32-36); MEAN CORPUSCULAR VOLUME 93 FL (80-99); MEAN PLATELET VOLUME 10.5 FL (7.4-10.4); MONOCYTES # (AUTO) 1.4 X 10^3 (0.0-1.0); MONOCYTES % (AUTO) 16 % (0-12); NEUTROPHILS # (AUTO) 5.6 X 10^3 (1.8-7.8); NEUTROPHILS % (AUTO) 63 % (42-75); PLATELET COUNT 363 10^3/uL (130-400); RED BLOOD COUNT 3.18 10^6/uL (4.35-5.85); RED CELL DISTRIBUTION WIDTH 13.9 % (10.0-14.5); WHITE BLOOD COUNT 8.8 10^3/uL (4.3-11.0)
[2017-10-23 07:27] VITALS: BP 197/85
[2017-10-23] MEDS: ENOXAPARIN 40 MG/0.4 ML (LOVENOX) SYR SC SCH (07:32)
[2017-10-23] MEDS: lisINopril 10 MG (PRINIVIL) TAB PO SCH (07:32)
[2017-10-23] MEDS: NS IV 1000 ML 1,000 ML IV SCH ×2 (07:32→18:33)
--- NOTE | 2017-10-23 09:04 | Physical Therapy Daily Note ---
PT Daily Note-Current Subjective Patient reports he is up in his room without difficulty. Pain Numeric Pain Scale: 5-Moderate Pain Location: Left Location Body Site: Hip Pain Description: Acute Mental Status Patient Orientation: Normal For Age Transfers Functional [employer] Measure 0=Not Assessed/NA 4=Minimal Assistance 1=Total Assistance 5=Supervision or Setup 2=Maximal Assistance 6=Modified [employer] 3=Moderate Assistance 7=Complete IndependenceIRFPAI Quality Coding Scale 6 Independent with activity with or without an assistive device 5 Patient requires set up or clean up by helper. Patient completes activity by themselves 4 Supervision or touching assist (CGA). [place] provide cues , steadying assist 3 The helper provides less than half the effort to complete the activity 2 The helper provides more than half the effort to complete the activity 1 Dependent. The helper does all the effort to complete an activity 7 Patient refused to complete or attempt activity 9 The patient did not perform the activity before the current illness or injury 88 Not attempted due to Medical conditions or safety concerns Transfers (B, C, W/C) (FIM): 6 Scootin Rollin Supine to/from Sit: 6 Sit to/from Stand: 6 Weight Bearing Right Lower Extremity: Right Full Weight Bearing Left Lower Extremity: Left Weight Bearing/Tolerated Gait Training Gait (FIM): 6 Distance (FIM): 3=150 ft Distance: 300' x 2 Gait Level of Assist: 6 Gait Assistive Device: FWW reciprocal pattern, safe and functional gait Stair Training Stair Training: Handrails/: No handrail, uses walker Stairs (FIM): 5 #of Steps: 4 Stairs: Pattern: Step to Level of Assist: 5 Exercises Seated Therapy Exercises: Ankle pumps, Long arc quads, Hip flexion, Hip abd/add Seated Reps: 15 (reveiw with exercises and is independent and performing independently 3-4 times/day) Assessment Current Status: Excellent Progress Patient has progressed rapidly due to a very active lifestyle. Patient will require FWW for home use upon dismissal. PT Short Term Goals Short Term Goals Time Frame: Oct 29, 2017 Transfers (B,C,W/C) (FIM): 6 Gait (FIM): 6 Gait Distance Comment: 150' Gait Level of Assist: 6 Gait Assistive Device: FWW PT Plan Treatment/Plan Treatment Plan: Continue Plan of Care Treatment Plan: Bed Mobility, Education, Functional Activity Manuel, Functional Strength, Gait, Safety, Therapeutic Exercise, Transfers Treatment Duration: Oct 29, 2017 Frequency: 11 times per week Estimated Hrs Per Day: .25 hour per day (15-30') Patient and/or Family Agrees t: Yes Discharge Recommendations Equpiment Recommendations-D/C: Front Wheeled Walker Time/GCodes Time In: 845 Time Out: 855 Total Billed Treatment Time: 10 Total Billed Treatment 1 visit FA 10 min ESTEFANY HAMM PT Oct 23, 2017 09:04
[2017-10-23 11:53] VITALS: BP 150/70
--- NOTE | 2017-10-23 12:08 | Progress Note-Hospitalist ---
Subjective HPI/CC On Admission Date Seen by Provider: Oct 23, 2017 Time Seen by Provider: 11:15 Pt is a 57yoCM with no known medicla history who presented to the ER after a fall from a ladder falling roughly 4ft. He denies any history of falls or dizziness or syncope with this fall. He presented to the ER due to pain and inability to walk and was found to have a left intertrochanteric hip fracture. Ortho has admitted for operative repair and I am consulted for assistance with hypertension. He denies a history of high blood pressure, chest pain, SOB, ESP[place]ZA. He does not follow with any regular doctors though. Subjective/Events-last exam Pt reports doing well today. Has been up and walking. Is concerned about going home today as he lives alone. Objective Exam Vital Signs Vital Sign - Last 12Hours 10/21/17 05:20 Temp 96.9 Pulse 80 Resp 20 B/P (MAP) 195/87 (123) Pulse Ox 98 O2 Delivery Room Air Capillary Refill : Less Than 3 SecondsLess Than 3 Seconds General Appearance: No Apparent Distress, WD/WN Respiratory: Normal Breath Sounds, No Respiratory Distress Cardiovascular: Regular Rate, Rhythm, No Murmur Neurologic/Psychiatric: Alert, Oriented x3 Results/Procedures Lab Assessment/Plan Assessment and Plan Assess & Plan/Chief Complaint left hip fracture Diagnosis/Problems Diagnosis/Problems (1) Closed intertrochanteric fracture of left hip Status: Acute Assessment & Plan: S/p fall at work Ortho primary POD #2 Not a candidate for inpt rehab Qualifiers: Qualified Codes: S72.142A - Displaced intertrochanteric fracture of left femur, initial encounter for closed fracture (2) Essential (primary) hypertension Status: Chronic Assessment & Plan: No known diagnosis but does not follow with any doctors Lisinopril started today Ok for DC from medical standpoint when okay with primary (3) Anemia Status: Acute Assessment & Plan: Anemia secondary to acute blood loss Hgb increased today Will do venofer Qualifiers: Qualified Codes: D64.89 - Other specified anemias (4) Daily consumption of alcohol Status: Acute Assessment & Plan: CIWA Assess Reports having gone 2 days without drinking before and has had no symptoms of withdrawal No signs of withdrawal (5) Very heavy cigarette smoker (40 or more per day) Status: Acute Assessment & Plan: Recommended smoking cessation Patient reports not interested in quitting SANGEETA SANCHEZ MD Oct 23, 2017 12:08
[2017-10-23] MEDS ORDERED: IRON1TAB97 PO (12:10)
[2017-10-23] MEDS ORDERED: LISI10TA2 PO (12:10)
[2017-10-23] MEDS ORDERED: IRON SUCROSE INJECTION 300 MG in NS (IVPB) 250 ML IV SCH (13:15)
--- NOTE | 2017-10-23 14:16 | Physical Therapy Daily Note ---
PT Daily Note-Current Subjective Patient states he just wants a nap. Agrees to PT. Pain Numeric Pain Scale: 5-Moderate Pain Location: Left Location Body Site: Hip Pain Description: Acute Mental Status Patient Orientation: Normal For Age Transfers Functional [place] Measure 0=Not Assessed/NA 4=Minimal Assistance 1=Total Assistance 5=Supervision or Setup 2=Maximal Assistance 6=Modified [place] 3=Moderate Assistance 7=Complete IndependenceIRFPAI Quality Coding Scale 6 Independent with activity with or without an assistive device 5 Patient requires set up or clean up by helper. Patient completes activity by themselves 4 Supervision or touching assist (CGA). [place] provide cues , steadying assist 3 The helper provides less than half the effort to complete the activity 2 The helper provides more than half the effort to complete the activity 1 Dependent. The helper does all the effort to complete an activity 7 Patient refused to complete or attempt activity 9 The patient did not perform the activity before the current illness or injury 88 Not attempted due to Medical conditions or safety concerns Transfers (B, C, W/C) (FIM): 6 Scootin Supine to/from Sit: 6 Sit to/from Stand: 6 Weight Bearing Right Lower Extremity: Right Full Weight Bearing Left Lower Extremity: Left Weight Bearing/Tolerated Gait Training Gait (FIM): 6 Distance (FIM): 3=150 ft Distance: 450' Gait Level of Assist: 6 Gait Assistive Device: FWW steady, antalgic gait sequence Assessment Patient reports compliance with exercise program and performs them independently. PT Short Term Goals Short Term Goals Time Frame: Oct 29, 2017 Transfers (B,C,W/C) (FIM): 6 Gait (FIM): 6 Gait Distance Comment: 150' Gait Level of Assist: 6 Gait Assistive Device: FWW PT Plan Treatment/Plan Treatment Plan: Continue Plan of Care Treatment Plan: Bed Mobility, Education, Functional Activity Manuel, Functional Strength, Gait, Safety, Therapeutic Exercise, Transfers Treatment Duration: Oct 29, 2017 Frequency: 11 times per week Estimated Hrs Per Day: .25 hour per day (15-30') Patient and/or Family Agrees t: Yes Time/GCodes Time In: 1332 Time Out: 1344 Total Billed Treatment Time: 12 Total Billed Treatment 1 visit FA 12 min ESTEFANY HAMM PT Oct 23, 2017 14:16
[2017-10-23 16:00] VITALS: BP 137/60
--- NOTE | 2017-10-23 16:53 | Progress Note (SOAP) ---
Subjective Date Seen by Provider: Oct 23, 2017 Time Seen by Provider: 16:47 Subjective/Events-last exam Pt NADIA, doing well, pain controlled, doing well in PT/OT, walked about 450 feet today, no complaints. Objective Exam Vital Signs Date Time Temp Pulse Resp B/P (MAP) Pulse Ox O2 Delivery O2 Flow Rate FiO2 10/23/17 16:00 98.3 87 20 137/60 (85) 97 Room Air 10/23/17 11:53 98.7 77 20 150/70 (96) 98 Room Air 10/23/17 07:27 97.2 77 22 197/85 (122) 96 Room Air 10/23/17 00:00 98.5 70 16 133/59 (83) 97 Room Air 10/22/17 21:00 Room Air I & O 10/23/17 07:00 Intake Total 2160 ml Output Total 1575 ml Balance 585 ml Capillary Refill : Less Than 3 SecondsLess Than 3 Seconds General Appearance: No Apparent Distress HEENT: Normal ENT Inspection Respiratory: No Accessory Muscle Use, No Respiratory Distress Cardiovascular: Regular Rate, Rhythm, Normal Peripheral Pulses Gastrointestinal: non tender, soft Extremity: Other (LLE: dressings c/d/i, all compartments soft/NT, motor/ sensation grossly intact, foot well perfused.) Neurologic/Psychiatric: Alert, Oriented x3, No Motor/Sensory Deficits, 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 II- XII Norm as Tested Results Lab Laboratory Tests 10/23/17 05:54: White Blood Count 8.8, Red Blood Count 3.18L, Hemoglobin 9.4L, Hematocrit 29L, Mean Corpuscular Volume 93, Mean Corpuscular Hemoglobin 30, Mean Corpuscular Hemoglobin Concent 32, Red Cell Distribution Width 13.9, Platelet Count 363, Mean Platelet Volume 10.5H, Neutrophils (%) (Auto) 63, Lymphocytes (%) (Auto) 19 , Monocytes (%) (Auto) 16H, Eosinophils (%) (Auto) 2, Basophils (%) (Auto) 0, Neutrophils # (Auto) 5.6, Lymphocytes # (Auto) 1.7, Monocytes # (Auto) 1.4H, Eosinophils # (Auto) 0.1, Basophils # (Auto) 0.0 Microbiology 10/21/17 MRSA Screen - Final, Complete MRSA not isolated Assessment/Plan Assessment/Plan Assess & Plan/Chief Complaint S/P IMN Left femur for intertrochanteric fracture POD #2 Doing well, orthopedically stable Continue PT/OT daily for mobilization OOB, WBAT LLE Lovenox/SCDs for VTE prophylaxis; will d/c on aspirin Current pain control regimen Acute post-op blood loss anemia, stable, pt asymptomatic and will monitor D/C planning: pt lives alone so will likely need HH services at home Anticipate d/c tomorrow. Instructions given Questions answered Clinical Quality Measures DVT/VTE Risk/Contraindication: Risk Factor Score Per Nursin RFS Level Per Nursing on Admit: 4+=Very High Smoking Cessation Counseling: Counseling-Asymptomatic: 3-10 minutes BHAVIK VILLALBA DO Oct 23, 2017 16:53
--- NOTE | 2017-10-23 16:53 | Occupational Ther Daily Note ---
OT Current Status-Daily Note Subjective Pt seen in room, up in bed, agreeable to OT. Said he had taken a shower and gotten dressed. "Getting used to" toilet setup in bathroom. No pain mentioned. pt getting blood Appearance Alert, cooperative Mental Status/Objective Functional [place] Measure 0=Not Assessed/NA 4=Minimal Assistance 1=Total Assistance 5=Supervision or Setup 2=Maximal Assistance 6=Modified [place] 3=Moderate Assistance 7=Complete Villal[place] ADL-Treatment Nursing reported that pt had difficulty getting slipper socks on. 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 He would also like to get meals on wheels for a short term. Information discussed with social work. Pt informed of communication and seemed pleased. He would like to know when he will be discharged so that he can get some clothes and shoes here to wear home. Pt left up in bed, all needs met. Education OT Patient Education: Purpose of tx/functional activities, Use of adapted equipment Teaching Recipient: Patient Teaching Methods: Discussion Response to Teaching: Verbalize Understanding OT Short Term Goals Short Term Goals Transfers (B,C,W/C) (FIM): 6 1=Demonstrate adherence to instructed precautions during ADL tasks. 2=Patient will verbalize/demonstrate understanding of assistive devices/ modifications for ADL. 3=Patient will improve strength/tolerance for activity to enable patient to perform ADL's. OT Care Home Goals Computer Security Manager Goals Time Frame: Oct 24, 2017 Upper Body Dressing(FIM): 6 Lower Body Dressing(FIM): 6 Toileting(FIM): 6 Toilet/Commode Transfer(FIM): 6 1=Demonstrate adherence to instructed precautions during ADL tasks. 2=Patient will verbalize/demonstrate understanding of assistive devices/ modifications for ADL. 3=Patient will improve strength/tolerance for activity to enable patient to perform ADL's. OT Education/Plan Problem List/Assessment Pt would benefit from skilled OT to increase his independence in basic self care to allow him to safely return to his home and to to decrease caregiver burden. Discharge Recommendations Plan/Recommendations: Continue POC Treatment Plan/Plan of Care Patient would benefit from OT for education, treatment and training to promote independence in ADL's, mobility, safety and/or upper extremity function for ADL' s. Plan of Care: ADL Retraining Treatment Duration: Oct 24, 2017 Frequency: 3 times per week Estimated Hrs Per Day: .25 hour per day (.25 to .5) Agreement: Yes Rehab Potential: Good Time/GCodes Start Time: 15:25 Stop Time: 15:35 Total Time Billed (hr/min): 10 Billed Treatment Time visit, 10 minutes ADL BRIGITTE WALL OT Oct 23, 2017 16:52
[2017-10-23] MEDS ORDERED: OXYC-471 PO (16:55)
[2017-10-24] VITALS: BP 151/75
[2017-10-24] MEDS: oxyCODONE/APAP 5/325MG (PERCOCET 5) TABLET PO PRN ×3 (01:27→10:50)
[2017-10-24] MEDS: THIAMINE 100 MG (VITAMIN B-1) TAB PO SCH (06:57)
[2017-10-24 08:00] VITALS: BP 141/68
[2017-10-24] MEDS: ENOXAPARIN 40 MG/0.4 ML (LOVENOX) SYR SC SCH (08:14)
[2017-10-24] MEDS: lisINopril 10 MG (PRINIVIL) TAB PO SCH (08:14)
--- NOTE | 2017-10-24 09:48 | Physical Therapy Progress Note ---
Therapy Progress Note Patient declined PT due to patient is up ad kurt in room and hallway at [facility]. Patient reports he is going home and has no questions or concerns for PT. PT to dismiss patient from services at this time. 1 ESTEFANY SAMS PT Oct 24, 2017 09:48
--- NOTE | 2017-10-24 10:09 | D/C HH Face to Face Order ---
D/C Face to Face Orders Instructions for Patient Patient Instructions/FollowUp: Dr Hunter as scheduled Physician to follow Patient: Dr Naveen Hunter Discharge Diet for Home: No Restrictions Patient Problems: Hip fracture Smoker Patient Data-Allergies,Ht & Wt Patient Allergies: Coded Allergies: No Known Drug Allergies (Unverified , 10/21/17) Height (Feet): 5 Height (Inches): 9.00 Weight (Pounds): 116 Weight (Ounces): 4.8 Home Health Need/Face to Face Date of Face to Face: Oct 24, 2017 Clinical Findings: Generalized weakness and fatigue, Pain with ambulation, Unsteady gait I have seen Pt [id number]: Yes Discharged To: Home Diagnosis/Conditions: Hip fracture Smoker Problems/Diagnosis/Condition: Patient is Homebound due to: Pain w/ambulation Homebound Status Due to the above stated illness, injury or surgical procedure (medical condition or diagnosis) and associated clinical findings, the patient is homebound because of his/her inability to leave home except with aid of a supportive device and/or person AND leaving the home requires a considerable and taxing effort or is medically contraindicated. Pt req the following assistanc: Walker Home Health Nursing Orders Home Health Services Order: Physical Therapy-Evaluate & Treat Home Health Infusion Therapy Line Start Date: Oct 21, 2017 Line Start Time: 0545 Line Type: Peripheral IV Site Location: Antecubital Certify Stmt I certify that this patient is under my care and that I, a nurse practitioner or a physician; a corporate law assistant working with me, had a face to face encounter that - meets the physician face to face encounter requirements with this patient as dated. KELLEN WILLAMS DO Oct 24, 2017 10:09
--- NOTE | 2017-10-24 10:10 | Discharge Summary-Hospitalist ---
Diagnosis/Chief Complaint Date of Admission Oct 21, 2017 at 05:45 Date of Discharge Discharge Date: Oct 24, 2017 Admission Diagnosis Left intertrochanteric hip fracture Discharge Diagnosis (1) Closed intertrochanteric fracture of left hip Status: Acute Assessment & Plan: S/p fall at work Ortho primary POD #2 Not a candidate for inpt rehab (2) Essential (primary) hypertension Status: Chronic Assessment & Plan: No known diagnosis but does not follow with any doctors Lisinopril started today Ok for DC from medical standpoint when okay with primary (3) Anemia Status: Acute Assessment & Plan: Anemia secondary to acute blood loss Hgb increased today Will do venofer (4) Daily consumption of alcohol Status: Acute Assessment & Plan: CIWA Assess Reports having gone 2 days without drinking before and has had no symptoms of withdrawal No signs of withdrawal (5) Very heavy cigarette smoker (40 or more per day) Status: Acute Assessment & Plan: Recommended smoking cessation Patient reports not interested in quitting Discharge Summary Discharge Physical Examination Allergies: Coded Allergies: No Known Drug Allergies (Unverified , 10/21/17) Vitals & I&Os Vital Signs Date Time Temp Pulse Resp B/P (MAP) Pulse Ox O2 Delivery O2 Flow Rate FiO2 10/24/17 00:00 97.6 75 18 151/75 (100) 95 Room Air Hospital Course Hospital course: Patient had an uneventful hospital course after sustaining a hip fracture after falling off a ladder and history of alcoholism and heavy smoking use and never seen a doctor for regular follow-up. He was found to be hypertensive that was treated and patient had an uneventful hip fracture repair by Dr. Hunter and patient was deemed stable for discharge to home health and medication will be delivered by Margi and I did place him on antihypertensive medication at discharge but likely he will not be compliant with taking that but only tried to reassure him on the safety profile the medication and hopefully he will limit his alcohol and smoking use to improve his overall health. Labs (last 24 hrs) Microbiology 10/21/17 MRSA Screen - Final, Complete MRSA not isolated Discharge Home Medications: Active Scripts Active Oxycodone-Acetaminophen 5-325 (Oxycodone HCl/Acetaminophen) 1 Each Tablet 1-2 Tab PO Q4H PRN Vitron-C Tablet (Iron,Carbonyl/Ascorbic Acid) 1 Each Tablet. 1 Each PO DAILY 30 Days Lisinopril 10 Mg Tablet 10 Mg PO DAILY Instructions to patient/family Please see electronic discharge instructions given to patient. Clinical Quality Measures DVT/VTE Risk/Contraindication: Risk Factor Score Per Nursin RFS Level Per Nursing on Admit: 4+=Very High Smoking Cessation Counseling: Counseling-Asymptomatic: 3-10 minutes Problem Qualifiers (1) Closed intertrochanteric fracture of left hip: Encounter type: initial encounter Fracture alignment: displaced Qualified Codes: S72.142A - Displaced intertrochanteric fracture of left femur, initial encounter for closed fracture (2) Anemia: Anemia type: other cause Other causes of anemia: other cause, not classified Qualified Codes: D64.89 - Other specified anemias KELLEN WILLAMS DO Oct 24, 2017 10:10
[2017-10-24] MEDS ORDERED: AMLO5TAB4 PO (10:44)
--- NOTE | 2017-10-24 11:30 | D/C HH Face to Face Order ---
D/C Face to Face Orders Instructions for Patient Patient Instructions/FollowUp: Dr Hunter as scheduled Physician to follow Patient: Dr Hunter Discharge Diet for Home: No Restrictions Patient Problems: Hip fracture Smoker Patient Data-Allergies,Ht & Wt Patient Allergies: Coded Allergies: No Known Drug Allergies (Unverified , 10/21/17) Height (Feet): 5 Height (Inches): 9.00 Weight (Pounds): 116 Weight (Ounces): 4.8 Home Health Need/Face to Face Date of Face to Face: Oct 24, 2017 Clinical Findings: Generalized weakness and fatigue, Pain with ambulation, Unsteady gait I have seen Pt [id number]: Yes Discharged To: Home Diagnosis/Conditions: Hip fracture Smoker Problems/Diagnosis/Condition: Patient is Homebound due to: Pain w/ambulation Homebound Status Due to the above stated illness, injury or surgical procedure (medical condition or diagnosis) and associated clinical findings, the patient is homebound because of his/her inability to leave home except with aid of a supportive device and/or person AND leaving the home requires a considerable and taxing effort or is medically contraindicated. Pt req the following assistanc: [facility] Nursing Orders Home Health Services Order: Nursing Services, Physical Therapy-Evaluate & Treat Home Health Infusion Therapy Line Start Date: Oct 21, 2017 Line Start Time: 0545 Line Type: Peripheral IV Site Location: Antecubital Therapy Orders Therapy Orders: PT to assess for OT Therapy Specific Orders: Gait training, Increase strength/endurance, Restore ROM Certify Stmt I certify that this patient is under my care and that I, a nurse practitioner or a physician; a advertising sales assistant working with me, had a face to face encounter that - meets the physician face to face encounter requirements with this patient as dated. KELLEN WILLAMS DO Oct 24, 2017 11:30
--- NOTE | 2017-10-24 11:34 | Progress Note-Standard ---
Standard Progress Note Progress Notes/Assess & Plan Date Seen by Provider: Oct 24, 2017 Time Seen by Provider: 11:31 Final Diagnosis Pt NADIA, doing well, pain controlled, mobilizing well in PT, no complaints. VSSAF Labs stable LLE: dressings c/d/i, all compartments soft/NT, motor/sensation grossly intact, foot well perfused. Abd: soft/NT Breathing well on RA CV: RRR S/P CR/IMN Left femur for intertrochanteric fracture, POD #3 Orthopedically stable D/C to home today with [facility] Pain Rx on chart Instructions given Questions answered F/U outpatient in 2 weeks. BHAVIK VILLALBA DO Oct 24, 2017 11:34
--- NOTE | 2017-10-24 11:43 | Discharge Summary ---
Diagnosis/Chief Complaint Date of Admission Oct 21, 2017 at 05:45 Date of Discharge 10/24/2017 Discharge Date: Oct 24, 2017 Discharge Time: 11:35 Admission Diagnosis Admission Diagnosis Intertrochanteric fracture Left proximal femur. Discharge Diagnosis Intertrochanteric fracture Left proximal femur Reason Hospital Visit Mr. Negro is a 57 y/o male that presents with CC of severe Left hip pain and an inability to ambulate/bear weight on his LLE secondary to sustaining a fall off of a 4 foot ladder early this morning while at work. He subsequently presented to the [facility] ED for evaluation/treatment. Upon presentation plain XRs of his Left femur demonstrated a minimally displaced intertrochanteric fracture of the Left proximal femur. Orthopedics was consulted for definitive management of his injury. Discharge Summary Hospital Course Hospital Course Patient was admitted to the hospital on 10/21/2017 with the diagnosis of an intertrochanteric fracture of his Left proximal femur that he sustained as a result of a fall off of a 4 foot ladder. He did not sustain additional musculoskeletal injuries. He was taken to the OR on 10/21/2017 and underwent successful surgical stabilization of his injury. He tolerated the procedure well without complications. He began PT/OT with mobilization OOB on POD #1, he was WBAT on his LLE. He received the appropriate VTE/antibiotic prophylaxis and pain control regimen. His LLE remained stable throughout his hospital stay. He made good progress daily in PT/OT. He completed his hospital course without adverse events. He was considered both medically and orthopedically stable enough for discharge on 10/24/2017 and was discharged to home on that date with home health service. He received specific post-op instructions at the time of discharge. He verbalized his understanding of all of his instructions. All of his questions were answered to his satisfaction prior to discharge. Labs Laboratory Tests 10/22/17 06:10: Red Blood Count 3.00L, Hemoglobin 8.9#L, Hematocrit 28L 10/23/17 05:54: Red Blood Count 3.18L, Hemoglobin 9.4L, Hematocrit 29L, Mean Platelet Volume 10.5H, Monocytes (%) (Auto) 16H, Monocytes # (Auto) 1.4H Procedures Closed reduction/placement of cephalomedullary nail Left femur. Consultations Hospitalist for medical management. Discharge Physical Examination Allergies: Coded Allergies: No Known Drug Allergies (Unverified , 10/21/17) Vitals & I&Os Vital Signs Date Time Temp Pulse Resp B/P (MAP) Pulse Ox O2 Delivery O2 Flow Rate FiO2 10/24/17 00:00 97.6 75 18 151/75 (100) 95 Room Air General Appearance: Alert, Oriented X3, Cooperative, No Acute Distress HEENT: Atraumatic, PERRLA Respiratory: Normal Air Movement Cardiovascular: Regular Rate Abdominal: Soft, No Tenderness Extremities: Other (LLE: dressings c/d/i, all compartments soft/NT, motor/ sensation grossly intact, foot well perfused.) Neuro: Normal Speech, Strength at 5/5 X4 Ext, Sensation Intact, Cranial Nerves 3-12 NL, Reflexes 2+ Psych/Mental Status: Mental Status NL Discharge Home Medications Reviewed and agree with Discharge Medication list on patient's Discharge Instruction sheet Instructions to Patient/Family Please see electronic discharge instructions given to patient. Clinical Quality Measures DVT/VTE Risk/Contraindication: VTE Addressed: Yes VTE Present on Admission: No Risk Factor Score Per Nursin RFS Level Per Nursing on Admit: 4+=Very High Smoking Cessation Counseling: Counseling-Asymptomatic: 3-10 minutes BHAVIK VILLALBA DO Oct 24, 2017 11:43
[2017-10-24 12:00] VITALS: BP 151/75
== END 2017-10-24 12:00 | disposition home health service (06) | DRG 481 ==
LOC: EDUNIT# 05:03 → ER 05:09 → 4TH 05:45
PROVIDERS: ADMIT Orthopaedic Surgery Orthopaedic Trauma; ATTEND Orthopaedic Surgery Orthopaedic Trauma
PROC: 0QS63ZZ Reposition Right Upper Femur, Percutaneous Approach (ICD-10-PCS; 2017-10-21)
PROC: 3E0T3BZ Introduction of Anesthetic Agent into Peripheral Nerves and Plexi, Percutaneous Approach (ICD-10-PCS; 2017-10-21)
PROC: 0QH706Z Insertion of Intramedullary Internal Fixation Device into Left Upper Femur, Open Approach (ICD-10-PCS; principal; 2017-10-21 13:35)
DX: S72.142A Displaced intertrochanteric fracture of left femur, initial encounter for closed fracture (principal); D62 Acute posthemorrhagic anemia; I10 Essential (primary) hypertension; F17.210 Nicotine dependence, cigarettes, uncomplicated; W11.XXXA Fall on and from ladder, initial encounter; Y99.0 Civilian activity done for income or pay; Z23 Encounter for immunization
CPT/HCPCS: 36415; 71045; 80053; 80320; 81000; 85025; 85027; 85610; 85730; 86850; 86900; 86901; 87081; 90471; 90715; 93005; 94664; 96374

== ENCOUNTER 2018-01-22 08:00 | Outpatient (RCR) | payer OTHER ==
[~2018-01-22 08:00] MED LIST: AMLO5TAB4 PO; IRON1TAB97 PO; LISI10TA2 PO; NAPR220T66 PO; OXYC-471 PO
== END 2018-02-08 | disposition home or self-care (01) ==
PROVIDERS: ATTEND Orthopaedic Surgery Orthopaedic Trauma
DX: S72.142D Displaced intertrochanteric fracture of left femur, subsequent encounter for closed fracture with routine healing (principal)

== ENCOUNTER 2021-06-13 03:45 | Emergency (ER) | payer BC ==
[~2021-06-13] VITALS: Ht 175 cm; Wt 63.3 kg
[~2021-06-13 03:45] MED LIST changes: -LISI10TA2 PO; +LISI10TA25 PO; -OXYC-471 PO; +OXYC1TAB11 PO
[2021-06-13 04:03] VITALS: BP 142/72
[2021-06-13] MEDS ORDERED: ACHD5005 PO (06:28)
--- NOTE | 2021-06-13 06:29 | ED Upper Extremity ---
General Chief Complaint: Trauma-Non Activation Stated Complaint: LEFT ARM PAIN-FALL Nursing Triage Note: PT PRESENTS TO THE ED AMBULATORY, STATES HE FELL INTO THE SHOWER LAST NIGHT AROUND 1800, FELL INTO HIS L SHOULDER. IS UNAQBLE TO LIFT THE ARM OVERHEAD TODAY. PT DENIES HEAD OR NECK PAIN. DENIES LOC, OR BAKER. Source: patient Exam Limitations: no limitations History of Present Illness Date Seen by Provider: Jun 13, 2021 Time Seen by Provider: 04:20 Initial Comments This 61 year old gentleman presents to the ER with complaint of left upper arm pain, swelling and loss of ROM after slipping and falling in the shower last night. He denies any other injury and states with was purely a mechanical fall. He admits to drinking 2 beers this morning. He does not appear intoxicated. Allergies and Home Medications Allergies Coded Allergies: No Known Drug Allergies (Unverified , 10/21/17) Home Medications Amlodipine Besylate 5 Mg Tablet, 5 MG PO DAILY Prescribed by: KELLEN WILLAMS on 10/24/17 1044 Hydrocodone/Acetaminophen 1 Each Tablet, 1 TAB PO Q4H PRN for PAIN-MODERATE (5- 7) Prescribed by: ROMA CASEY on 06/13/21 0629 Iron,Carbonyl/Ascorbic Acid 1 Each Tablet.dr, 1 EACH PO DAILY Prescribed by: SANGEETA SANCHEZ on 10/23/17 1210 Oxycodone HCl/Acetaminophen 1 Each Tablet, 1-2 TAB PO Q4H PRN for PAIN-SEVERE Prescribed by: BHAVIK VILLALBA on 10/23/17 1655 Patient Home Medication List Home Medication List Reviewed: Yes Review of Systems Constitutional: no symptoms reported EENTM: no symptoms reported Respiratory: no symptoms reported Cardiovascular: no symptoms reported Gastrointestinal: no symptoms reported Genitourinary: no symptoms reported Musculoskeletal: see HPI Skin: no symptoms reported Psychiatric/Neurological: No Symptoms Reported Past Ovhzgqa-Lvugle-Rdqgyo Hx Patient Social History Tobacco Use?: Yes Tobacco type used: Cigarettes Alcohol Use?: Yes Alcohol type: Beer Alcohol Frequency: Daily Immunizations Up To Date Tetanus Booster (TDap): More than 5yrs Influenza Vaccine Up-to-Date: No; Not Current Seasonal Allergies Seasonal Allergies: No Past Medical History Surgery/Hospitalization HX: L HIP FX REPAIR Surgeries: Yes (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 4.8oz. [id number]; 20.00 BMI Method:Estimated General Appearance: WD/WN, no apparent distress HEENT: PERRL/EOMI, normal ENT inspection Neck: non-tender, normal inspection Cardiovascular: regular rate, rhythm, no edema, no murmur, other (Normal left radial pulse) Respiratory: lungs clear, normal breath sounds, no respiratory distress, no accessory muscle use Shoulder: bone tenderness, ecchymosis, limited ROM, pain, soft tissue tenderness, swelling Elbow/Forearm: normal inspection, non-tender, no evidence of injury, Left Wrist: Yes normal inspection, Yes non-tender, Yes no evidence of injury Hand: normal inspection, non-tender, Left Neurologic/Psychiatric: cuff cutter II-XII nml as tested, no motor/sensory deficits, alert, normal mood/affect, oriented x 3, other (Normal sensation in the distal LUE) Progress/Results/Core Measures Results/Orders My Orders Orders - ROMA VAN MD Shoulder, Left, 3 Views (06/13/21 04:27) Rx-Hydrocodone/Apap 5-325 Mg (Rx-Vicodin (06/13/21 05:00) Medications Given in ED Vital Signs/I&O Blood Pressure Mean: 95 Progress Progress Note : Progress Note Shoulder x-ray demonstrated impacted left proximal humerus fracture. He was fitted with a sling and a take-home bottle of hydrocodone was dispensed. Diagnostic Imaging Diagonstic Imaging: Xray Plain Films/CT/US/NM/MRI: other (Left shoulder) Comments Shoulder x-rays viewed by me. There is an impacted left proximal shoulder fracture with no significant displacement. Departure Impression Primary Impression: Left humeral fracture Qualified Codes: S42.292A - Other displaced fracture of upper end of left humerus, initial encounter for closed fracture Additional Impression: Fall on same level Qualified Codes: W18.30XA - Fall on same level, unspecified, initial encounter Disposition: HOME, SELF-CARE Condition: Improved Departure-Patient Inst. Decision time for Depature: 05:00 Referrals: NO,LOCAL PHYSICIAN (PCP) Primary Care Physician ОЛЬГА ALANIS MD, MICHAEL P MD Patient Instructions: Upper Arm Fracture Add. Discharge Instructions: Keep your arm in the sling as much as possible. Use your pain medication as prescribed. Icing in 20-minute intervals should also help with pain and swelling. Follow-up with an orthopedic surgeon as soon as possible. Some orthopedic surgeons are listed below for your convenience. Call with questions or concerns. Return to care if you have any worsening of condition. All discharge instructions reviewed with patient and/or family. Voiced understanding. Scripts Hydrocodone/Acetaminophen (Hydrocodone-Acetamin 5-325 mg) 1 Each Tablet 1 TAB PO Q4H PRN for PAIN-MODERATE (5-7), #20 TAB Prov: ROMA VAN MD 06/13/21 ROMA VAN MD Jun 13, 2021 06:29
--- NOTE | 2021-06-13 06:45 | Diagnostic Imaging Report ---
Indication: Fall, left shoulder pain 3 views left shoulder shows fracture through the neck of the humerus with impaction but no angulation. There is no dislocation. There is an old ununited fracture of the clavicle. IMPRESSION: Mildly impacted humeral neck fracture. Dictated by: Dictated on workstation # [id number]
== END 2021-06-13 06:41 | disposition home or self-care (01) ==
LOC: EDUNIT# 03:45 → ER 03:55
DX: S42.292A Other displaced fracture of upper end of left humerus, initial encounter for closed fracture (principal); G89.29 Other chronic pain; M54.9 Dorsalgia, unspecified; Z79.891 Long term (current) use of opiate analgesic; W18.30XA Fall on same level, unspecified, initial encounter
CPT/HCPCS: 73030